=== PATIENT | female | born 1995 | race Two or more races ===

== ENCOUNTER 2021-04-08 08:25 | Emergency (ER) | payer OTHER ==
[~2021-04-08] VITALS: Ht 157.5 cm; Wt 44.0 kg
[2021-04-08 09:18] VITALS: BP 111/80
[2021-04-08] MEDS ORDERED: KETOROLAC TROMETH 60MG/2ML VIAL IM ONE (09:45)
[2021-04-08] MEDS ORDERED: AMOX500T86 PO (09:49)
[2021-04-08] MEDS ORDERED: IBU600T PO (09:49)
== END 2021-04-08 10:09 | disposition home or self-care (01) ==
LOC: ER 08:25
DX: J03.90 Acute tonsillitis, unspecified (principal)
CPT/HCPCS: 96372; 99283; J1885

== ENCOUNTER 2021-10-25 15:00 | Observation (INO) | payer OTHER ==
[~2021-10-25] VITALS: Ht 162.6 cm; Wt 74.8 kg
[~2021-10-25 15:00] MED LIST: AMOX500T86 PO; IBU600T PO
[2021-10-25] MEDS ORDERED: LACTATED RINGER'S 1,000 ML IV ONE (16:00)
== END 2021-10-25 18:26 | disposition home or self-care (01) ==
LOC: LDRP 15:00
PROVIDERS: ADMIT Obstetrics & Gynecology; ATTEND Obstetrics & Gynecology
DX: O36.8130 Decreased fetal movements, third trimester, not applicable or unspecified (principal); O62.9 Abnormality of forces of labor, unspecified; O26.853 Spotting complicating pregnancy, third trimester; O26.893 Other specified pregnancy related conditions, third trimester; N89.8 Other specified noninflammatory disorders of vagina; Z3A.28 28 weeks gestation of pregnancy
CPT/HCPCS: 59025; 81002; 94760; 96360; G0378